=== PATIENT | male | born 1965 | race Caucasian/White ===

== ENCOUNTER 2020-02-03 15:32 | Emergency (ER) | payer SELFPAY ==
[~2020-02-03] VITALS: Ht 170.2 cm; Wt 72.6 kg
--- NOTE | 2020-02-03 15:35 | NUR ---
PT BIB EMS TO BED 4.
[2020-02-03 15:38] VITALS: BP 144/83
[2020-02-03] MEDS ORDERED: KETOROLAC 60 MG/2 ML VIAL IM ONE (15:40)
--- NOTE | 2020-02-03 15:41 | NUR ---
XR AT BEDSIDE.
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
[2020-02-03] MEDS ORDERED: SULFAMETH/TRIMETH DS 800/160MG 1 TAB PO ONE (16:10)
--- NOTE | 2020-02-03 16:35 | NUR ---
CLEANED PT'S WOUND AND HAD ER PHYSICAN EXAM WOUND, ER PHYSICAN APPLIED DERMABOND TO PT'S WOUND. PLACED GUTTER SPINT ON PT'S LEFT FOOT, CHECK PMSC'S BEFORE AND AFTER PROCEDURE WITHOUT INCIDENT AND GAVE PT CRUTCHES WITH ONE ON ONE INSTRUCTIONS.
[2020-02-03 16:41] VITALS: BP 138/91
--- NOTE | 2020-02-03 16:41 | NUR ---
Patient discharged with v/s stable. Written and verbal after care instructions given and explained. Patient alert, oriented and verbalized understanding of instructions. Ambulatory with [facility]. All questions addressed prior to discharge. ID band removed. Patient advised to follow up with PMD. Rx of Motrin and Bactrim given. Patient educated on indication of medication including possible reaction and side effects. Opportunity to ask questions provided and answered.
== END 2020-02-03 16:41 | disposition home or self-care (01) ==
LOC: MED 15:32
DX: S92.532A Displaced fracture of distal phalanx of left lesser toe(s), initial encounter for closed fracture (principal); E11.9 Type 2 diabetes mellitus without complications; W22.8XXA Striking against or struck by other objects, initial encounter; Y93.89 Activity, other specified; Y92.89 Other specified places as the place of occurrence of the external cause; Y99.8 Other external cause status
CPT/HCPCS: 12001; 73630; 96372; 99283; J1885; Q0092

== ENCOUNTER 2020-02-06 15:16 | Emergency (ER) | payer SELFPAY ==
[~2020-02-06] VITALS: Ht 167.6 cm; Wt 77.1 kg
[2020-02-06 15:41] VITALS: BP 150/90
--- NOTE | 2020-02-06 15:49 | NUR ---
54 Y/O M C/C WOUND CHECK. PER PT NOTICED ABNORMAL BLEEDING AND PAIN SINCE INJURY, WEDNESDAY. PT GOT 4TH DIGIT GLUED AT [facility] WEDNESDAY AND WAS TOLD TO COME BACK IF ANYTHING ABNORMAL NOTED. NO BLEEDING NOTED ON ASSESSMENT, CMS INTACT, ROM INTACT. PT NKA. HX DM. RX METFORMIN. SIDE RAIL X1.
--- NOTE | 2020-02-06 16:03 | NUR ---
KARMA Odonnell is evaluating the patient at bedside.
[2020-02-06] MEDS ORDERED: LIDOCAINE MPF 1% 10 MG/ML VIAL INJ ONE (16:25)
[2020-02-06] MEDS ORDERED: HYDROcodone/APAP 5/325 MG 1 TAB TAB PO ONE (16:25)
--- NOTE | 2020-02-06 16:29 | NUR ---
lidocaine at bedside for pa hammonds use.
--- NOTE | 2020-02-06 17:43 | NUR ---
APPLIED DRESING AND BHAVIN WRAP TO LEFT FOOT WITHOUT ANY ISSUES
--- NOTE | 2020-02-06 17:45 | NUR ---
PT STATES DECREASE IN PAIN AFTER MEDICATION. 12/01
[2020-02-06 18:02] VITALS: BP 150/90
== END 2020-02-06 18:02 | disposition home or self-care (01) ==
LOC: MED 15:16
DX: S91.115A Laceration without foreign body of left lesser toe(s) without damage to nail, initial encounter (principal); E11.9 Type 2 diabetes mellitus without complications; Z48.02 Encounter for removal of sutures; X58.XXXA Exposure to other specified factors, initial encounter; Y93.89 Activity, other specified; Y92.89 Other specified places as the place of occurrence of the external cause; Y99.8 Other external cause status
CPT/HCPCS: 12001; 99283; J2001; 99282

== ENCOUNTER 2020-02-08 15:17 | Emergency (ER) | payer SELFPAY ==
[~2020-02-08] VITALS: Ht 167.6 cm; Wt 77.1 kg
[2020-02-08 15:27] VITALS: BP 134/75
--- NOTE | 2020-02-08 15:35 | NUR ---
PT AMBULATED TO BED 12 W/ CRUTCHES.
--- NOTE | 2020-02-08 16:00 | NUR ---
54 Y/O MALE PT CAME TO ED THE ERMD THAT SAW PT ON WEDNESDAY TOLD PT TO COME BACK FOR A WOUND RECHECK . PT HAS SUTURES TO THE LEFT RING TOE, SOME DRY BLOOD, WELL APPROXIMATED EDGES, NO DRAINAGE,NO SWELLING, NO REDNESS. DENIES N/V/D; SKIN IS PINK/WARM/DRY; AAOX4 WITH EVEN AND STEADY GAIT; PT DENIES ANY FEVER, CP, SOB, OR COUGH AT THIS TIME; PATIENT STATES PAIN OF 8/10 WHEN PT MOVES EXTREMITY; VSS; PATIENT POSITIONED FOR COMFORT; HOB ELEVATED; BEDRAILS UP X1; BED DOWN AND WHEELS LOCKED. MEDICAL HX: DIABETES NKA
--- NOTE | 2020-02-08 16:15 | NUR ---
PT WOUND CLEANED WITH NORMAL SALINE, WRAPPED WITH NON-ADHESIVE BANDAGE AND RE-WRAPPED WITH PTS OWN BHAVIN WRAP.
[2020-02-08 16:17] VITALS: BP 134/75
--- NOTE | 2020-02-08 16:17 | NUR ---
Patient discharged with v/s stable. Written and verbal after care instructions given and explained. Patient verbalized understanding. Ambulatory with steady gait. All questions addressed prior to discharge. Advised to follow up with PMD.
== END 2020-02-08 16:17 | disposition home or self-care (01) ==
LOC: MED 15:17
DX: S92.592D Other fracture of left lesser toe(s), subsequent encounter for fracture with routine healing (principal); E11.9 Type 2 diabetes mellitus without complications; Z48.00 Encounter for change or removal of nonsurgical wound dressing; X58.XXXD Exposure to other specified factors, subsequent encounter
CPT/HCPCS: 82948; 99281; 99282

== ENCOUNTER 2020-02-12 16:43 | Emergency (ER) | payer MEDICAID ==
[~2020-02-12] VITALS: Ht 167.6 cm; Wt 75.7 kg
--- NOTE | 2020-02-12 16:43 | NUR ---
PT AMBULATED TO BED 12, STEADY GAIT.
[2020-02-12 16:59] VITALS: BP 139/76
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
--- NOTE | 2020-02-12 17:20 | NUR ---
DR. CONDON AT BEDSIDE.
--- NOTE | 2020-02-12 17:34 | NUR ---
PT WOUND COVERED WITH NON ADHERENT DRESSING AND WRAPPED WITH COFLEX TAPE
[2020-02-12 17:35] VITALS: BP 139/76
--- NOTE | 2020-02-12 17:35 | NUR ---
Patient discharged with v/s stable. Written and verbal after care instructions given and explained. Patient alert, oriented and verbalized understanding of instructions. Ambulatory with steady gait. All questions addressed prior to discharge. ID band removed. Patient advised to follow up with PMD. Rx of BACTIM AND KEFLEX given. Patient educated on indication of medication including possible reaction and side effects. Opportunity to ask questions provided and answered. PT GIVEN REFFERAL INFORMATION ON PCP AND PODIATRY. PT INSTRUCTED TO FOLLOW UP WITH PODIATRY AND HAVE PCP ASSIGNED.
== END 2020-02-12 17:35 | disposition home or self-care (01) ==
LOC: MED 16:43
DX: L02.612 Cutaneous abscess of left foot (principal); E11.9 Type 2 diabetes mellitus without complications
CPT/HCPCS: 99283

== ENCOUNTER 2020-03-15 16:21 | Emergency (ER) | payer MEDICAID ==
[~2020-03-15] VITALS: Ht 167.6 cm; Wt 83.9 kg
[2020-03-15 16:24] VITALS: BP 122/51
--- NOTE | 2020-03-15 16:34 | NUR ---
PT AMBULATED TO BED 07.
--- NOTE | 2020-03-15 16:38 | NUR ---
ermd at bedside
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
--- NOTE | 2020-03-15 16:39 | NUR ---
cms/rom/capillary refill wdl bilateral lower extremties; redness noted on LLE, foot area, warmth to the touch. no pain.
--- NOTE | 2020-03-15 16:54 | NUR ---
us at bedside
[2020-03-15 17:14] LABS: BASOPHILS # (AUTO) 0.1 K/uL (0.00-0.22); BASOPHILS % (AUTO) 0.7 % (0.0-2.0); EOSINOPHILS # (AUTO) 0.1 K/uL (0-0.4); EOSINOPHILS % (AUTO) 1.5 % (0.0-4.0); HEMATOCRIT 49.5 % (36-52); HEMOGLOBIN 16.6 g/dL (12.0-18.0); LYMPHOCYTES # (AUTO) 3.9 K/uL (2.0-11.5); LYMPHOCYTES % (AUTO) 50.3 % (20.5-51.1); MEAN CORPUSCULAR HEMOGLOBIN 30 pg (27-31); MEAN CORPUSCULAR HGB CONC 34 g/dL (33-37); MEAN CORPUSCULAR VOLUME 90.7 fL (80-94); MONOCYTES # (AUTO) 0.7 K/uL (0.8-1.0); MONOCYTES % (AUTO) 8.4 % (1.7-9.3); NEUTROPHILS % (AUTO) 39.1 % (42.2-75.2); PLATELET COUNT (AUTO) 162 K/uL (140-450); RED BLOOD CELL COUNT(AUTO) 5.46 MIL/uL (4.20-6.10); RED CELL DISTRIBUTION WIDTH 12.9 % (11.6-13.7); WHITE BLOOD COUNT (AUTO) 7.8 K/uL (4.8-10.8)
[2020-03-15 17:38] LABS: ALBUMIN 4.3 g/dL (3.4-5.0); ANION GAP 14.9 (8-16); CARBON DIOXIDE 27.8 mmol/L (21-32); CREATININE 1.4 mg/dL (0.6-1.3); POTASSIUM 3.7 mmol/L (3.5-5.1); TOTAL BILIRUBIN 1.1 mg/dL (0.0-1.0)
[2020-03-15] MEDS ORDERED: LEVOFLOXACIN 500 MG TAB PO ONE (18:20)
[2020-03-15 18:31] VITALS: BP 124/56
--- NOTE | 2020-03-15 18:31 | NUR ---
Patient discharged with v/s stable. Written and verbal after care instructions given and explained. Patient alert, oriented and verbalized understanding of instructions. Ambulatory with steady gait. All questions addressed prior to discharge. ID band removed. Patient advised to follow up with PMD. Rx of levaquin given. Patient educated on indication of medication including possible reaction and side effects. Opportunity to ask questions provided and answered.
== END 2020-03-15 18:31 | disposition home or self-care (01) ==
LOC: MED 16:21
DX: L03.116 Cellulitis of left lower limb (principal); E11.9 Type 2 diabetes mellitus without complications
CPT/HCPCS: 36415; 80053; 83605; 85025; 87040; 93971; 99284; Q0092

== ENCOUNTER 2020-11-07 08:23 | Emergency (ER) | payer SELFPAY ==
[~2020-11-07] VITALS: Ht 160 cm; Wt 79.4 kg
[2020-11-07 08:32] VITALS: BP 134/74
--- NOTE | 2020-11-07 08:35 | NUR ---
55/M BIB C/O COUGH, DIFFICULTY BREATHING X 2 WEEKS. O2 SAT 93 % AT THIS TIME. PMH: DM.
--- NOTE | 2020-11-07 10:09 | NUR ---
COVID SWAB DONE.
[2020-11-07 10:12] VITALS: BP 134/74
== END 2020-11-07 10:11 | disposition home or self-care (01) ==
LOC: MED 08:23
DX: R05 Cough (principal); R50.9 Fever, unspecified; E11.9 Type 2 diabetes mellitus without complications; Z20.828 Contact with and (suspected) exposure to other viral communicable diseases
CPT/HCPCS: 99283; U0003

== ENCOUNTER 2023-08-04 17:43 | Emergency (ER) | payer MEDICAID ==
[~2023-08-04] VITALS: Ht 153.7 cm; Wt 75.0 kg
[2023-08-04 18:03] VITALS: BP 130/72; PULSE 91; RESP 18; TEMP 98.5; O2SAT 96
[2023-08-04] MEDS ORDERED: IBUPROFEN 600 MG TAB PO ONE (18:55)
[2023-08-04] MEDS ORDERED: IBUP-2213 PO (20:00)
[2023-08-04 20:20] VITALS: BP 130/72; PULSE 91; RESP 18; TEMP 98.5; O2SAT 96
== END 2023-08-04 20:20 | disposition home or self-care (01) ==
LOC: MED 17:43
DX: S93.492A Sprain of other ligament of left ankle, initial encounter (principal); W22.8XXA Striking against or struck by other objects, initial encounter; Y93.89 Activity, other specified; Y92.89 Other specified places as the place of occurrence of the external cause; Y99.8 Other external cause status
CPT/HCPCS: 73610; 99283